=== PATIENT | female | born 1945 | race Caucasian/White ===

== ENCOUNTER → 2018-02-01 | Outpatient (CLI) | payer MEDICARE ==
--- NOTE | 2018-02-01 13:29 | US ---
EXAMINATION TYPE: US abdomen complete DATE OF EXAM: 02/01/2018 COMPARISON: MRI lumbar spine April 05, 2016. CT chest abdomen and pelvis August 24, 2011 CLINICAL HISTORY: R14.0 abdominal distension. EXAM MEASUREMENTS: Liver Length: 11.3 cm Gallbladder Wall: 0.3 cm CBD: 0.3 cm Spleen: 11.5 cm Right Kidney: 10.6 x 3.9 x 4.1 cm Left Kidney: 10.4 x 5.6 x 4.1 cm Large body habitus, extensive overlying bowel gas. Technically difficult study Pancreas: Obscured by bowel gas Liver: Increased attenuation, limited views Gallbladder: wnl Evidence for sonographic Willis's sign: No CBD: limited visualization Spleen: wnl Right Kidney: No hydronephrosis or masses seen Left Kidney: No hydronephrosis or masses seen Upper IVC: wnl Abd Aorta: mostly obscured by bowel gas, somewhat ectatic The visualized liver is heterogeneously hyperechoic. Finding is consistent with diffuse fatty infiltr ation. Evaluation for focal masses is suboptimal due to the heterogeneity. There is focal ectasia of the visualized mid abdominal aorta which correlates with MRI axial image 20. No greater than 3 cm ane urysmal change is seen. There is no evidence of cholelithiasis. Common bile duct is unremarkable. T he pancreas is obscured by overlying bowel gas on images saved. The spleen is unremarkable. Kidneys are symmetric and free of hydronephrosis. No renal lesions are seen. IMPRESSION: Suboptimal study, no ascites is evident on images saved. Diffuse fatty infiltration of li shahida and ectasia of the abdominal aorta is redemonstrated.
== END | disposition home or self-care (01) ==
LOC: RADUSWWP 11:13
PROVIDERS: ATTEND Family Medicine
DX: K76.0 Fatty (change of) liver, not elsewhere classified (principal); I77.811 Abdominal aortic ectasia
CPT/HCPCS: 76700

== ENCOUNTER 2020-03-02 13:50 | Emergency (ER) | payer MEDICARE ==
[2020-03-02 14:19] VITALS: TEMP 98
--- NOTE | 2020-03-02 15:20 | ED ---
General Adult HPI - General Chief complaint: Fever Stated complaint: covid exposure, Fever,ND Time Seen by Provider: 03/02/20 14:43 Source: patient Mode of arrival: ambulatory Limitations: no limitations - History of Present Illness Initial comments: 74-year-old female with history of hypertension on lisinopril presenting for multiple complaints. Patient states that she has had loss of taste, smell, increased cough from her baseline as she is a smoker for the past 3-4 days. 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 Patient denies SOB, chest pain or pressure. Denies hemoptysis or leg swelling/pain. Admit to nausea, no vomiting, diarrhea or rashes. Patient admits to lip swelling that began 3 days ago, patient does take lisinopril-- denies tongue swelling or difficulty swallowing, states the swelling hasnt worsened or gone down. Patient denies adsitional complaints. Upon arrival she does appears well in good spirits, no signs of acute respiratory distress on gross exam. No difficulty with long winded sentences. - Related Data Home Medications Medication Instructions Recorded Confirmed Lisinopril-Hctz 20-25 mg 1 tab PO HS 05/16/14 03/02/20 [Zestoretic 20-25] Lovastatin [Mevacor] 80 mg PO HS 05/16/14 03/02/20 Omeprazole [PriLOSEC] 20 mg PO HS 05/16/14 03/02/20 Cholecalciferol [Vitamin D3 (25 1,000 unit PO HS 03/02/20 03/02/20 Mcg = 1000 Iu)] Potassium Chloride ER [K-Dur 10] 10 meq PO HS 03/02/20 03/02/20 diphenhydrAMINE [Benadryl] 25 mg PO HS 03/02/20 03/02/20 Allergies Allergy/AdvReac Type Severity Reaction Status Date / Time Penicillins Allergy Unknown Verified 03/02/20 15:04 Review of Systems ROS Statement: Those systems with pertinent positive or pertinent negative responses have been documented in the HPI. ROS Other: All systems not noted in ROS Statement are negative. Past Medical History Past Medical History: Hyperlipidemia, Hypertension History of Any Multi-Drug Resistant Organisms: None Reported Past Surgical History: Hysterectomy, Orthopedic Surgery Additional Past Surgical History / Comment(s): RT SHOULDER; RECTOCELE REPAIR Past Psychological History: No Psychological Hx Reported Smoking Status: Never smoker Past Alcohol Use History: None Reported Past Drug Use History: None Reported General Exam - General Exam Comments Initial Comments: General: The patient is awake and alert, in no distress Eye: +3 mm pupils are equal, round and reactive to light, extra-ocular movement s are intact. No nystagmus. There is normal conjunctiva bilaterally. No signs of icterus. Ears, nose, mouth and throat: There are moist mucous membranes and no oral lesi ons. Neck: The neck is supple, there is no tenderness or JVD. Cardiovascular: There is a regular rate and rhythm. No murmur, rub or gallop is appreciated. Respiratory: Lungs are clear to auscultation, respirations are non-labored, breath sounds are equal. No wheezes, stridor, rales, or rhonchi. Gastrointestinal: Soft, non-distended, non-tender abdomen without masses or organomegaly noted. There is no rebound or guarding present. Musculoskeletal: Normal ROM, no tenderness. Strength 5/5. Sensation intact. radial pulses equal bilaterally 2+. Neurological: A&O x 3. CN II-XII intact grossly, There are no obvious motor or sensory deficits. Coordination appears grossly intact. Speech is normal. Skin: Skin is warm and dry and no rashes or lesions are noted. no calf pain no LE edema. Psychiatric: Cooperative, appropriate mood & affect, normal judgment. Limitations: no limitations Course Vital Signs 03/02/20 03/02/20 03/02/20 14:13 15:29 16:21 Temperature 98.0 F Pulse Rate 103 H 70 84 Respiratory 22 18 18 Rate Blood Pressure 178/99 142/78 145/73 O2 Sat by Pulse 97 100 100 Oximetry 03/02/20 17:42 Temperature 98.0 F Pulse Rate 84 Respiratory 18 Rate Blood Pressure 145/73 O2 Sat by Pulse 100 Oximetry EKG Findings - EKG Comments: EKG Findings:: Ventricular rate 76 bpm, WI interval 142 ms, QRS rotation 70 ms, QT/QTC 376/[address] elevation or depression appreciated, reviewed with attendchaitanya Gudino Medical Decision Making - Medical Decision Making Labs stable. Pt appears in no distress, does NOT endorse any SOB. Lungs clear. Poor CXR quality. Reviewed with attending no obvious infiltrate, pt afebrile, no white count. Covid test pending. + covid exposure. Patient at this time I feel is stable for disdcharge with close monitoring and PCP f/u. Pt did endorse lip swelling, on lisinopril, no worsening will discharge with discontinuation of medication anod PCP f/u for further BP medication. pt states she will go back to her amlodipine. Patient case discussed with Dr. Gudino who is agreeable to discharge/care plan. - Lab Data Result diagrams: 03/02/20 15:20 03/02/20 15:20 Lab Results 03/02/20 03/02/20 03/02/20 Range/Units 15:20 15:20 15:20 WBC 7.0 (3.8-10.6) k/uL RBC 4.73 (3.80-5.40) m/uL Hgb 14.1 (11.4-16.0) gm/dL Hct 43.0 (34.0-46.0) % MCV 90.8 (80.0-100.0) fL MCH 29.8 (25.0-35.0) pg MCHC 32.8 (31.0-37.0) g/dL RDW 13.5 (11.5-15.5) % Plt Count 274 (150-450) k/uL Neutrophils % 60 % Lymphocytes % 29 % Monocytes % 5 % Eosinophils % 5 % Basophils % 1 % Neutrophils # 4.2 (1.3-7.7) k/uL Lymphocytes # 2.0 (1.0-4.8) k/uL Monocytes # 0.3 (0-1.0) k/uL Eosinophils # 0.3 (0-0.7) k/uL Basophils # 0.0 (0-0.2) k/uL PT 9.9 (9.0-12.0) sec INR 0.9 (<1.2) APTT 24.7 (22.0-30.0) sec Sodium 139 (137-145) mmol/L Potassium 4.3 (3.5-5.1) mmol/L Chloride 104 (98-107) mmol/L Carbon Dioxide 28 (22-30) mmol/L Anion Gap 7 mmol/L BUN 16 (7-17) mg/dL Creatinine 0.94 (0.52-1.04) mg/dL Est GFR (CKD-EPI)AfAm 69 (>60 ml/min/1.73 sqM) Est GFR (CKD-EPI)NonAf 60 (>60 ml/min/1.73 sqM) Glucose 114 H (74-99) mg/dL Plasma Lactic Acid Evelio (0.7-2.0) mmol/L Calcium 10.6 H (8.4-10.2) mg/dL Magnesium 1.8 (1.6-2.3) mg/dL Total Bilirubin 0.5 (0.2-1.3) mg/dL AST 42 H (14-36) U/L ALT 35 H (4-34) U/L Alkaline Phosphatase 76 (38-126) U/L Lactate Dehydrogenase 554 (313-618) U/L Troponin I (0.000-0.034) ng/mL C-Reactive Protein 5.3 (<10.0) mg/L Total Protein 8.1 (6.3-8.2) g/dL Albumin 4.5 (3.5-5.0) g/dL Influenza Type A RNA (Not Detectd) Influenza Type B (PCR) (Not Detectd) 03/02/20 03/02/20 03/02/20 Range/Units 15:20 15:20 15:20 WBC (3.8-10.6) k/uL RBC (3.80-5.40) m/uL Hgb (11.4-16.0) gm/dL Hct (34.0-46.0) % MCV (80.0-100.0) fL MCH (25.0-35.0) pg MCHC (31.0-37.0) g/dL RDW (11.5-15.5) % Plt Count (150-450) k/uL Neutrophils % % Lymphocytes % % Monocytes % % Eosinophils % % Basophils % % Neutrophils # (1.3-7.7) k/uL Lymphocytes # (1.0-4.8) k/uL Monocytes # (0-1.0) k/uL Eosinophils # (0-0.7) k/uL Basophils # (0-0.2) k/uL PT (9.0-12.0) sec INR (<1.2) APTT (22.0-30.0) sec Sodium (137-145) mmol/L Potassium (3.5-5.1) mmol/L Chloride (98-107) mmol/L Carbon Dioxide (22-30) mmol/L Anion Gap mmol/L BUN (7-17) mg/dL Creatinine (0.52-1.04) mg/dL Est GFR (CKD-EPI)AfAm (>60 ml/min/1.73 sqM) Est GFR (CKD-EPI)NonAf (>60 ml/min/1.73 sqM) Glucose (74-99) mg/dL Plasma Lactic Acid Evelio 1.3 (0.7-2.0) mmol/L Calcium (8.4-10.2) mg/dL Magnesium (1.6-2.3) mg/dL Total Bilirubin (0.2-1.3) mg/dL AST (14-36) U/L ALT (4-34) U/L Alkaline Phosphatase (38-126) U/L Lactate Dehydrogenase (313-618) U/L Troponin I <0.012 (0.000-0.034) ng/mL C-Reactive Protein (<10.0) mg/L Total Protein (6.3-8.2) g/dL Albumin (3.5-5.0) g/dL Influenza Type A RNA Not Detected (Not Detectd) Influenza Type B (PCR) Not Detected (Not Detectd) Disposition Clinical Impression: Cough, Drug reaction, Loss of taste, Loss of smell Disposition: HOME SELF-CARE Condition: Good Instructions (If sedation given, give patient instructions): Upper Respiratory Infection (ED), Angioedema (ED) Additional Instructions: Please use medication as discussed. Please follow-up with family doctor on Thursday please discontinue the lisinopril as you have lip swelling. Must quarantine for 7-10 days or until symptom free/fever free x 48 hours. Please return to emergency room if the symptoms increase or worsen or for any other concerns. Is patient prescribed a controlled substance at d/c from ED?: No Referrals: Matt Ortiz DO [Primary Care Provider] - 1-2 days Time of Disposition: 17:01
[2020-03-02] MEDS ORDERED: ACETAMINOPHEN TAB 325 MG TAB PO STA (15:22)
[2020-03-02 15:30] VITALS: RESP 18
[2020-03-02] MEDS ORDERED: methylPREDNISolone SOD SUCCI 125 MG/2 ML VIAL IM ONE (15:31)
[2020-03-02 15:50] LABS: INR 0.9 (<1.2); Partial Thromboplastin Time 24.7 sec (22.0-30.0); Prothrombin Time 9.9 sec (9.0-12.0)
[2020-03-02 15:53] LABS: Basophils % (A) 1 %; Eosinophils # (A) 0.3 k/uL (0-0.7); Eosinophils % (A) 5 %; HGB 14.1 gm/dL (11.4-16.0); Lymphocytes % (A) 29 %; MCH 29.8 pg (25.0-35.0); MCHC 32.8 g/dL (31.0-37.0); MCV 90.8 fL (80.0-100.0); Mean Platelet Volume 7.6; Monocytes # (A) 0.3 k/uL (0-1.0); Monocytes % (A) 5 %; Neutrophils # (A) 4.2 k/uL (1.3-7.7); Neutrophils % (A) 60 %; Platelet Count 274 k/uL (150-450); RBC 4.73 m/uL (3.80-5.40); RDW 13.5 % (11.5-15.5)
[2020-03-02 15:57] LABS: Albumin 4.5 g/dL (3.5-5.0); C Reactive Protein 5.3 mg/L (<10.0); Calcium 10.6 mg/dL (8.4-10.2); Magnesium 1.8 mg/dL (1.6-2.3); Potassium 4.3 mmol/L (3.5-5.1); Total Bilirubin 0.5 mg/dL (0.2-1.3); Total Protein 8.1 g/dL (6.3-8.2)
[2020-03-02 16:22] VITALS: BP 145/73; PULSE 84
--- NOTE | 2020-03-02 16:25 | XR ---
EXAMINATION TYPE: XR chest 1V portable DATE OF EXAM: 03/02/2020 Comparison: None Clinical History: 74 year-old female Suspected COVID-19 pneumonia Findings: Heart normal size. Large patient body habitus and AP portable technique as seen hazy peripheral lung densities. Atherosclerotic arch calcifications. No north consolidation or pleural effusion. Impression: Hazy densities in the periphery of the lungs likely relating to patient body habitus and portable [place]. No definite acute process at this time.
[2020-03-02 23:03] LABS: Ferritin 29.5 ng/mL (10.0-291.0)
== END 2020-03-02 17:44 | disposition home or self-care (01) ==
LOC: EC 13:50
DX: R05 Cough (principal); R43.8 Other disturbances of smell and taste; T50.905A Adverse effect of unspecified drugs, medicaments and biological substances, initial encounter; I10 Essential (primary) hypertension; E78.5 Hyperlipidemia, unspecified; Z79.899 Other long term (current) drug therapy; Z88.0 Allergy status to penicillin; Z20.828 Contact with and (suspected) exposure to other viral communicable diseases
CPT/HCPCS: 36415; 93005; 80053; 82728; 83605; 83615; 83735; 84484; 85025; 85610; 85730; 86140; 87040; 87502; 84145; 71045; 99284; 96372; U0003; J2930

== ENCOUNTER → 2021-10-28 | Outpatient (CLI) | payer MEDICARE ==
--- NOTE | 2021-10-28 16:38 | US ---
EXAMINATION TYPE: US carotid duplex BILAT DATE OF EXAM: 10/28/2021 COMPARISON: NONE CLINICAL HISTORY: R09.89 SYMPTOMS INVOLVING THE CIRCULATORY SYSTEM. EXAM MEASUREMENTS: RIGHT: Peak Systolic Velocity (PSV) cm/sec ----- Right CCA: 74.7 ----- Right ICA: 94.9 ----- Right ECA: 108.9 ICA/CCA ratio: 1.3 RIGHT: End Diastole cm/sec ----- Right CCA: 15.4 ----- Right ICA: 28.5 ----- Right ECA: 12.8 LEFT: Peak Systolic Velocity (PSV) cm/sec ----- Left CCA: 86.9 ----- Left ICA: 97.4 ----- Left ECA: 71.6 ICA/CCA ratio: 1.1 LEFT: End Diastole cm/sec ----- Left CCA: 25.0 ----- Left ICA: 27.1 ----- Left ECA: 9.7 VERTEBRALS (direction of flow): Right Vertebral: Antegrade Left Vertebral: Antegrade Rhythm: Normal Grayscale, color Doppler, spectral Doppler imaging performed the carotid arteries, waveform analysis does not show significant stenosis of the proximal internal carotid arteries. Mild atherosclerotic ch anges with no significant velocity increases. IMPRESSION: No hemodynamic significant stenosis of the proximal internal carotid arteries by Doppler criteria, an indirect measurement of carotid stenosis Criteria for Assigning % of Stenosis / Diameter reduction (Estimation based on the indirect measurements of the internal carotid artery velocities (ICA PSV). 1. Normal (no stenosis)=ICA PSV < 125 cm/s: ratio < 2.0: ICA EDV<40 cm/s. 2. Less than 50% stenosis=ICA PSV < 125 cm/s: ratio < 2.0: ICA EDV<40 cm/s. 3. 50 to 69% stenosis=ICA PSV of 125 to 230 cm/s: ration 2.0 ? 4.0: ICA EDV 40-100 cm/s. 4. Greater than 70% stenosis to near occlusion= ICA PSV > 230 cm/s: ratio > 4.0: ICA EDV > 100 cm/s. 5. Near occlusion= ICA PSV velocities may be low or undetectable: variable ratio and ICA EDV. 6. Total occlusion=unable to detect flow.
--- NOTE | 2021-10-28 17:34 | CA ---
Transthoracic Echo Report Name: Debbie Leon Age: 75 Gender: F : 1945 Exam Date: 10/28/2021 15:11 Exam Location: [facility] Ht (in): 60 Wt (lb): 147 Ordering Physician: Matt Ortiz DO Attending/Referring Phys: Forensic Toxicologist Mckayla Cyr RDCS Procedure CPT: Indications: R01.1 R09.89 Cardiac Hx: Hx of Hypertension. Hyperlipidemia. Technical Quality: Good Contrast 1: Total Dose (mL): Contrast 2: Total Dose (mL): MEASUREMENTS (Male / Female) Normal Values 2D ECHO LV Diastolic Diameter PLAX 3.7 cm 4.2 - 5.9 / 3.9 - 5.3 cm LV Systolic Diameter PLAX 1.6 cm IVS Diastolic Thickness 1.2 cm 0.6 - 1.0 / 0.6 - 0.9 cm LVPW Diastolic Thickness 1.2 cm 0.6 - 1.0 / 0.6 - 0.9 cm LV Relative Wall Thickness 0.7 RV Internal Dim ED PLAX 2.3 cm LVOT Diameter 1.9 cm LA Volume 28.5 cm??? 18 - 58 / 22 - 52 cm??? M-MODE Aortic Root Diameter MM 2.6 cm LA Systolic Diameter MM 3.5 cm LA Ao Ratio MM 1.3 MV E Point Septal Separation 0.4 cm AV Cusp Separation MM 1.6 cm DOPPLER AV Peak Velocity 265.6 cm/s AV Peak Gradient 28.2 mmHg AV Mean Velocity 201.2 cm/s AV Mean Gradient 17.5 mmHg AV Velocity Time Integral 52.9 cm AI Peak Velocity 441.8 cm/s AI Peak Gradient 78.1 mmHg AI Pressure Half Time 658.4 ms LVOT Peak Velocity 104.5 cm/s LVOT Peak Gradient 4.4 mmHg AV Area Cont Eq pk 1.1 cm??? MV Area PHT 3.4 cm??? MR Peak Velocity 425.5 cm/s MR Peak Gradient 72.4 mmHg Mitral E Point Velocity 64.3 cm/s Mitral A Point Velocity 96.6 cm/s Mitral E to A Ratio 0.7 MV Deceleration Time 224.0 ms MV E' Velocity 4.3 cm/s Mitral E to MV E' Ratio 15.0 TR Peak Velocity 225.2 cm/s TR Peak Gradient 20.3 mmHg Right Ventricular Systolic Press 25.3 mmHg FINDINGS Left Ventricle Mildly increased septal wall thickness. Mildly increased posterior wall thickness. Left ventricular ejection fraction is estimated at 55-60 %. Left ventricular cavity size normal. Grade 1 diastolic dysfunction. Right Ventricle The right ventricle is normal in size and function. Right Atrium The right atrium is normal in size. Left Atrium The left atrium is normal in size. Mitral Valve Structurally normal mitral valve without significant stenosis or prolapse. There is mild mitral regurgitation. Aortic Valve Diffuse thickening of the aortic valve cusps with reduced excursion. Mild aortic stenosis with a peak gradient of 28 mmHg and a mean gradient of 17 mmHg. Mild aortic regurgitation. Tricuspid Valve Structurally normal tricuspid valve without significant stenosis. Pulmonary artery systolic pressure is normal. Mild tricuspid regurgitation. Pulmonic Valve Structurally normal pulmonic valve without significant stenosis. There is no pulmonic regurgitation. Pericardium Normal pericardium without effusion. Aorta Normal aortic root dimension. CONCLUSIONS LVH with preserved systolic function Calcific aortic valve with mild aortic stenosis Previewed by: Dr. Hipolito Ruvalcaba MD (Electronically Signed) Final Date: 28 October 2021 17:33
== END | disposition home or self-care (01) ==
LOC: RADECHMAIN 15:06
PROVIDERS: ATTEND Family Medicine
DX: I08.2 Rheumatic disorders of both aortic and tricuspid valves (principal); I65.23 Occlusion and stenosis of bilateral carotid arteries
CPT/HCPCS: 93306; 93880

== ENCOUNTER → 2022-11-20 | Outpatient (CLI) | payer MEDICARE ==
--- NOTE | 2022-11-21 21:44 | MM ---
Reason for Exam: Screening (asymptomatic). Last mammogram was performed 7 year(s) and 10 month(s) ago. Patient History: Menarche at age 12. First Full-Term at age 19. Left ovary removed at age 50. Right ovary removed at age 50. Hysterectomy at age 50. Postmenopausal. Estrogen for 7 years from age 56 until age 73. 1996, Benign Excisional Biopsy on the left side. Maternal aunt had breast cancer. Risk Values: Rhonda 5 year model risk: 1.5%. NCI Lifetime model risk: 3.1%. Prior Study Comparison: 04/30/2011 Screening Mammogram, [facility]. 10/25/2013 Bilateral Screening Mammogram, [facility]. 01/10/2015 Bilateral Screening Mammogram, [facility]. Tissue Density: There are scattered fibroglandular densities. Findings: Analyzed By CAD. Grouped coarse macrocalcifications redemonstrated on the left, very gradually increasing. These are typically benign calcifications. Additional benign vascular calcifications on both sides. There is no suspicious group of microcalcifications or new suspicious mass in either breast. Overall Assessment: Benign, BI-RAD 2 Management: Screening Mammogram of both breasts in 1 year. . Patient should continue monthly self-breast exams. A clinical breast exam by your physician is recommended on an annual basis. This exam should not preclude additional follow-up of suspicious palpable abnormalities. Note on Rhonda scores and lifetime risk: 1. A Rhonda score greater than 3% is considered moderate risk. If this is the case, consider specialist referral to assess eligibility for a risk reducing agent. 2. If overall lifetime risk for the development of breast cancer is 20% or higher, the patient may qualify for future screening with alternating mammogram and breast MRI. Electronically signed and approved by: Jenny Goodman M.D. Radiologist
== END | disposition home or self-care (01) ==
LOC: RADMAMWWP 13:31
PROVIDERS: ATTEND Family Medicine
DX: Z12.31 Encounter for screening mammogram for malignant neoplasm of breast (principal); Z80.3 Family history of malignant neoplasm of breast; Z78.0 Asymptomatic menopausal state
CPT/HCPCS: 77063; 77067

== ENCOUNTER → 2022-11-26 | Outpatient (CLI) | payer MEDICARE ==
--- NOTE | 2022-11-26 14:13 | CA ---
Transthoracic Echo Report Name: Debbie Leon Age: 76 Gender: F : 1945 Exam Date: 11/26/2022 11:34 Exam Location: [place] [facility] Ht (in): 60 Wt (lb): 135 Ordering Physician: Matt Ortiz DO Attending/Referring Phys: Matt Ortiz DO Fire Fighter Juju Vera RDCS Procedure CPT: Indications: R01.1 CARDIAC MURMUR, UNSPECIFIED Cardiac Hx: Technical Quality: Good Contrast 1: Total Dose (mL): Contrast 2: Total Dose (mL): MEASUREMENTS (Male / Female) Normal Values 2D ECHO LV Diastolic Diameter PLAX 4.8 cm 4.2 - 5.9 / 3.9 - 5.3 cm LV Systolic Diameter PLAX 2.9 cm IVS Diastolic Thickness 1.1 cm 0.6 - 1.0 / 0.6 - 0.9 cm LVPW Diastolic Thickness 1.2 cm 0.6 - 1.0 / 0.6 - 0.9 cm LV Relative Wall Thickness 0.5 RV Internal Dim ED PLAX 2.4 cm LVOT Diameter 2.1 cm LA Systolic Diameter LX 3.5 cm 3.0 - 4.0 / 2.7 - 3.8 cm LV Diastolic Volume MOD 4C 85.8 cm??? LV Systolic Volume MOD 4C 45.3 cm??? LV Ejection Fraction MOD 4C 47.2 % LV Cardiac Index MOD 4C 1469.3 cm???/min???m??? LV Diastolic Length 4C 8.3 cm LV Systolic Length 4C 6.7 cm LV Diastolic Volume MOD 2C 65.6 cm??? LV Systolic Volume MOD 2C 28.6 cm??? LV Ejection Fraction MOD 2C 56.4 % LV Cardiac Index MOD 2C 1342.3 cm???/min???m??? LV Diastolic Length 2C 7.6 cm LV Systolic Length 2C 6.4 cm LA Volume 59.3 cm??? 18 - 58 / 22 - 52 cm??? M-MODE Aortic Root Diameter MM 2.4 cm MV E Point Septal Separation 0.4 cm AV Cusp Separation MM 1.9 cm DOPPLER AV Peak Velocity 302.2 cm/s AV Peak Gradient 36.5 mmHg AV Mean Velocity 212.0 cm/s AV Mean Gradient 19.6 mmHg AV Velocity Time Integral 71.4 cm AI Peak Velocity 472.1 cm/s AI Peak Gradient 89.1 mmHg AI Pressure Half Time 517.8 ms LVOT Peak Velocity 124.3 cm/s LVOT Peak Gradient 6.2 mmHg AV Area Cont Eq pk 1.4 cm??? MV Area PHT 2.4 cm??? Mitral E Point Velocity 84.2 cm/s Mitral A Point Velocity 114.9 cm/s Mitral E to A Ratio 0.7 MV Deceleration Time 316.1 ms MV E' Velocity 4.2 cm/s Mitral E to MV E' Ratio 20.2 TR Peak Velocity 250.0 cm/s TR Peak Gradient 25.0 mmHg Right Ventricular Systolic Press 29.4 mmHg FINDINGS Left Ventricle Left ventricular ejection fraction is estimated at 50-55 %. Left ventricular cavity size normal. Mild concentric LVH. No obvious regional wall motion abnormality Right Ventricle Normal right ventricular size. Right ventricular systolic pressure within normal limits. Right Atrium Normal right atrial size. Left Atrium Mildly increased left atrial volume. Mitral Valve Mitral valve thickened. Mild mitral regurgitation. Mitral annular calcification. Aortic Valve Trileaflet aortic valve. Aortic valve sclerosis. Mild aortic stenosis. Mean gradient 20 mmHg, Vmax 3.1 m/s. Moderate aortic regurgitation Tricuspid Valve Structurally normal tricuspid valve. Mild tricuspid regurgitation. Pulmonic Valve Structurally normal pulmonic valve. No pulmonic regurgitation. Pericardium No pericardial effusion. Aorta Normal size aortic root and proximal ascending aorta. CONCLUSIONS Normal LV size and systolic function. Estimated EF 60% Mild concentric LVH. No obvious regional wall motion abnormality. Aortic valve sclerosis. Mild aortic stenosis. Mean gradient 20 mmHg, Vmax 3.1 m/s. Moderate aortic regurgitation Mild mitral regurgitation. Mitral annular calcification. Patient is noticed to be severely hypertensive during the study When compared to prior echo from 10/2022, aortic regurgitation appears more worse which can be attributed to hypertension Previewed by: Dr Jarred Schneider (Electronically Signed) Final Date: 26 November 2022 14:12
== END | disposition home or self-care (01) ==
LOC: RADECHMAIN 11:23
PROVIDERS: ATTEND Family Medicine
DX: I08.0 Rheumatic disorders of both mitral and aortic valves (principal); R01.1 Cardiac murmur, unspecified
CPT/HCPCS: 93306